=== PATIENT | female | born 1955 | race Caucasian/White ===

== ENCOUNTER 2021-11-13 11:54 | Outpatient (REF) | payer OTHER, SELFPAY ==
[2021-11-13 13:36] LABS: Alanine Aminotransferase 10 U/L (0-31); Albumin Level 3.7 g/dL (3.5-5.0); Alkaline Phosphatase 75 U/L (39-117); Anion Gap 12 (12-20); Aspartate Amino Transferase 11 U/L (5-31); Bilirubin Total 0.7 mg/dL (0.0-1.0); Blood Urea Nitrogen 10 mg/dL (9-16); Calcium 9.6 mg/dL (8.4-10.2); Carbon Dioxide 32 mmol/L (22-29); Chloride 100 mmol/L (96-108); Cholesterol 195 mg/dL; Estimated Glomerular Filt Rate 52; Glucose Fasting 128 mg/dL (60-99); HDL Cholesterol 51 mg/dL; LDL Cholesterol Calculated 130 mg/dl; Potassium 4.7 mmol/L (3.3-5.1); Sodium 139 mmol/L (135-145); Total Protein 6.4 g/dL (6.5-8.0); Triglycerides 71 mg/dL
[2021-11-13 13:53] LABS: TSH reflex Free T4 2.54 uIU/mL (0.32-4.0)
== END 2021-11-13 11:55 | disposition home or self-care (01) ==
LOC: HO.WFDLDS 11:54
PROVIDERS: Visit Provider Hospitalist
DX: Z00.00 Encounter for general adult medical examination without abnormal findings (principal)
CPT/HCPCS: 36415; 80053; 80061; 84443

== ENCOUNTER 2022-03-23 08:50 | Outpatient (REF) | payer OTHER, SELFPAY ==
--- NOTE | ~2022-03-23 | MM_ITS ---
EXAMINATION: MM SCREENING DIGITAL BREAST TOMOSYNTHESIS, BILATERAL CLINICAL INFORMATION: Screening. Asymptomatic. The lifetime risk of breast cancer based on the Tyrer-Cuzick Model is 14%. COMPARISON: Outside mammography: 01/31/2021, 01/10/2020, 01/05/2019 ([facility]) TECHNIQUE: Digital breast tomosynthesis is performed in both the craniocaudal and mediolateral oblique views along with computer-aided detection (CAD). Synthesized 2D images are generated from the tomosynthesis. Additional right MLO view is provided. FINDINGS: There are scattered areas of fibroglandular density (ACR BI-RADS breast composition Category b). Breast tissue composition borders on predominantly fatty. Background stromal and fibroglandular densities are stable. There are scattered benign relatively coarse calcifications. There is no developing density or interval mass or architectural abnormality. The axilla are unremarkable. No significant changes. MM/MM tomosynthesis screening BI IMPRESSION: No mammographic evidence of malignancy. ASSESSMENT: BI-RADS 2: Benign RECOMMENDATION: Routine annual mammography screening. This patient's information was entered into a reminder system with a target due date for their next mammogram.
== END 2022-03-23 08:51 | disposition home or self-care (01) ==
LOC: HO.MAMMO 08:50
PROVIDERS: PCP Hospitalist; Visit Provider Hospitalist
DX: Z12.31 Encounter for screening mammogram for malignant neoplasm of breast (principal)
CPT/HCPCS: 77063; 77067

== ENCOUNTER 2022-06-18 09:17 | Outpatient (REF) | payer OTHER, SELFPAY ==
[2022-06-18 11:54] LABS: Blood Urea Nitrogen 13 mg/dL (9-16); Estimated Glomerular Filt Rate 55
== END 2022-06-18 09:18 | disposition home or self-care (01) ==
LOC: HO.WFDLDS 09:17
PROVIDERS: Visit Provider Ophthalmology
DX: C69.51 Malignant neoplasm of right lacrimal gland and duct (principal); C69 Malignant neoplasm of eye and adnexa
CPT/HCPCS: 36415; 82565; 84520

== ENCOUNTER 2024-06-03 08:59 | Inpatient (IN) | payer MEDICARE, SELFPAY ==
[2024-06-03] VITALS (10 sets, daily range): BP systolic 117–148; BP diastolic 49–60; PULSE 70–80; RESP 19–36; TEMP 36.6–36.8; O2SAT 79–96; BMI 43.6
--- NOTE | ~2024-06-03 | CT_ITS ---
EXAMINATION: CT ANGIOGRAM CHEST CLINICAL INFORMATION: Hypoxia COMPARISON: None available. TECHNIQUE: Multiple axial images were obtained through the chest after the administration of 70 mL of Omnipaque 350 intravenous contrast. Extensive vascular post-processing including two-dimensional and three-dimensional reformatted images were created and reviewed on an independent workstation. SmartPrep technique. This CT examination was performed using dose optimization techniques as appropriate, variously including the following: *Automated exposure control *Adjustment of mA and/or kV according to patient size (this includes techniques or standardized protocols for targeted exams where dose is matched to indication/reason for exam; i.e. extremities or head) *Use of iterative reconstruction technique DLP: 564 mGy-cm FINDINGS: Limited by patient's breathing motion artifact. Inadequate SmartPrep technique. No gross intraluminal filling defects within the main pulmonary artery or its main branches. Inadequate evaluation of the small subsegmental pulmonary artery branches. No aneurysm or dissection, thoracic aorta. Mixed plaques throughout the thoracic aorta wall. The left vertebral artery origin is directly from the aortic arch between the left CCA and the left subclavian artery. Multifocal nodular pulmonary groundglass with a bronchovascular bundle pattern. No pleural effusion. No pneumothorax. No pericardial effusion. Calcified plaques in the coronary arteries. Multilevel spondylosis. No acute fracture or gross listhesis. CT/CT angio chest PE protocol IMPRESSION: Limited examination demonstrated no acute pulmonary artery emboli. No dissection, aorta. Concerning multifocal pneumonia versus septic emboli. Malignancy cannot be excluded. Recommend follow-up. Fleischner guidelines were followed. Electronically signed by: Bert Marin MD 06/03/2024 11:51 AM KATIE
--- NOTE | ~2024-06-03 | XR_ITS ---
EXAMINATION: XR CHEST CLINICAL INFORMATION: sob COMPARISON: None available. TECHNIQUE: Frontal view of the chest was obtained. FINDINGS: Multifocal patchy opacities. No pleural effusion. No pneumothorax. Cardiomediastinal silhouette is normal in size. Calcified plaque thoracic aorta. Multilevel thoracic spondylosis. XR/XR chest 1V IMPRESSION: Concerning multifocal pneumonia Electronically signed by: Bert Marin MD 06/03/2024 11:55 AM EST
--- NOTE | 2024-06-03 10:11 | ED_ITS ---
HPI - SOB/Dyspnea General Chief Complaint: Dyspnea Stated Complaint: diff breathing Time Seen by Provider: 06/03/24 10:10 Source: patient Mode of arrival: ambulatory Limitations: no limitations History of Present Illness HPI Narrative: 59 year old female never been to our ER. PMH: of obesity, asthama, Hypothyroidism, ulcerative colitis, depression with 3 weeks of shortness of breath and cough. Found in triage to have oxygen level of 79%. She is not on oxygen at home. MD elicited complaint: shortness of breath and cough Related Data Home Medications ?Medication ?Instructions ?Recorded ?Confirmed budesonide-formoterol HFA 160 1 inh inhalation BID 11/12/21 mcg-4.5 mcg/actuation aerosol inhaler (Symbicort) bupropion HCl 300 mg 24 hr tablet, 300 mg PO QAM 11/12/21 extended release carvedilol 25 mg tablet 25 mg PO BID 11/12/21 levothyroxine 112 mcg capsule 112 mcg PO DAILY 11/12/21 mesalamine 0.375 gram 1.5 g PO DAILY 11/12/21 capsule,extended release 24 hr Previous Rx's ?Medication ?Instructions ?Recorded blood pressure kit-extra large #1 ea 11/12/21 albuterol sulfate 90 mcg/actuation 2 puff inhalation Q4-6H PRN 10/09/22 aerosol inhaler (ProAir HFA) shortness of breath or wheezing #8.5 grams carvedilol 12.5 mg tablet 12.5 mg PO BID #60 tabs 12/01/23 Allergies Allergy/AdvReac Type Severity Reaction Status Date / Time latex Allergy Mild Hives Verified 06/03/24 10:02 Review of Systems 2 Review of Systems: Review of systems: General: Patient denies any fever chills recent illness or falls Musculoskeletal: Denies back pain or body aches or other injuries HEENT: denies headache, runny nose, ear pain Respiratory: shortness of breath, cough Cardiovascular: no chest pain or palpitations : denies dysuria, frequency Abdomen: no nausea vomiting denies abdominal pain Extremities: no swelling, no pain Skin: no diaphoresis Yes all other systems are reviewed and are negative PMFSH Past Medical History Medical History Asthma Hypertension Hypothyroidism Lymphoma Ulcerative colitis Family History Family History Father Esophageal cancer Mother Breast cancer Social History Social History Housing: House Patient Tobacco Use Status: Former Tobacco user Smoked in Last 30 Days: No e-Cigarette/Vaping Use: Never Used Use of substances other than those prescribed or required for medical reasons: No Advance Directives: No Advance Directives Information Provided: Yes Do you have a plan to hurt others: No Plan service: No Current occupational status: disabled Cognitive needs: No Hearing needs: No Physical Exam 2 Vital Signs: Vital Signs: Last Vital Signs Temp 98.1 F 06/03/24 11:33 Pulse 78 06/03/24 11:46 Resp 30 H 06/03/24 11:46 BP 123/59 L 06/03/24 11:33 Pulse Ox 95 06/03/24 11:33 O2 Del Method Nasal Cannula 06/03/24 11:33 O2 Flow Rate 2 06/03/24 11:33 BMI result Body Mass Index 43.6 General: Well-appearing well-nourished in no signs of distress HEENT: Normocephalic atraumatic Neck: No signs of JVD, no masses no tenderness or lymphadenopathy Cardiovascular: Regular rate and rhythm Respiratory: Clear to auscultation bilaterally Abdomen: Soft nontender no masses Extremities: Normal pedal pulses no signs of edema Skin: Dry warm no rashes Back: No tenderness full ROM Course Course Course Narrative: 1042 patient with multifocal pneumonia started on Zosyn vancomycin as well as Solu-Medrol for her breathing. I did explain the diagnosed with the patient was sent for CT as the patient was very hypoxic to rule out any PE Reevaluation(s) Reevaluation #1: Patient again demonstrates multifocal pneumonia I think the patient benefit from admission especially since she is hypoxic requiring oxygen I discussed the case with the hospitalist at this time. Time: 12:26 Medications Administered Generic Name Dose Route Start Last Admin Trade Name Freq PRN Reason Stop Dose Admin Vancomycin HCl 2,000 mg in 500 mls @ 250 mls/hr 06/03/24 11:00 06/03/24 12:29 Vancomycin/Ns IV 06/03/24 12:59 250 mls/hr ONCE ONE Administration Discontinued Medications Generic Name Dose Route Start Last Admin Trade Name Freq PRN Reason Stop Dose Admin Albuterol Sulfate 2.5 mg/ 5 mg 06/03/24 10:18 06/03/24 10:25 Albuterol Sulfate 2.5 mg INHALE 06/03/24 10:19 5 mg ONCE ONE Administration Albuterol Sulfate 2.5 mg/ 0 mg 06/03/24 11:46 06/03/24 11:50 Albuterol/Ipratropium 3 ml INHALE 06/03/24 11:47 7.5 dose ONCE ONE Administration Piperacillin Sod/Tazobactam 100 mls @ 200 mls/hr 06/03/24 10:31 06/03/24 12:29 Sod 4.5 gm/ Sodium Chloride IV 06/03/24 11:00 Infused ONCE ONE Infusion Sodium Chloride 1,000 mls @ 999 mls/hr 06/03/24 11:15 06/03/24 11:26 Ns IV 06/03/24 12:15 999 mls/hr .Q1H1M JORDAN Administration Iohexol 100 ml 06/03/24 11:09 06/03/24 11:09 Iohexol 350 Mg/Ml 100 Ml Infus..Btl IV 06/03/24 11:10 70 ml ONCE ONE Administration Methylprednisolone Sodium Succinate 125 mg 06/03/24 10:31 06/03/24 11:25 Methylprednisolone Sod Succ 125 Mg/2 Ml Vial IVPUSH 06/03/24 10:32 125 mg ONCE ONE Administration Medical Decision Making Medical Decision Making [facility] Narrative: Hypoxic with pneumonia on x-ray that was done immediately upon arrival I will start the patient on antibiotics Solu-Medrol you have some breathing treatments Differential Diagnosis Differential Diagnoses: The differential diagnosis associated with the presentation includes PE since the patient's hypoxic she is not tachycardic has cough appears to be bronchospastic I think she would benefit from breathing treatments concern for pneumonia with hypoxia as well Admission/Observation Consideration of admission/observation: Escalation of care including admission/observation considered Consult Healthcare Provider Management of the patient was discussed with: Hospitalist Patient require admission she is requiring oxygen she is requiring antibiotics for pneumonia case discussed we both agreed the patient will be admitted Lab Data [facility] Lab Attestation statement: I reviewed the patient's lab results. 06/03/24 10:32 06/03/24 10:32 Labs: Lab Results 1206/03/24 06/03/24 Range/Units 10:26 10:32 10:55 WBC 13.4 H (4.8-10.8) X10*3/uL RBC 3.61 L (4.20-5.50) X10*6/uL Hgb 11.7 L (12.0-16.0) g/dl Hct 34.5 L (37.0-47.0) % MCV 95.6 (80.0-98.0) fL MCH 32.4 (27.0-33.0) pg MCHC 33.9 (31.0-35.0) g/dl RDW 13.5 (11.0-16.0) % Plt Count 247 (160-400) X10*3/uL MPV 9.9 (9.4-12.3) fL Immature Gran % (Auto) Cancelled Neut % (Auto) Cancelled Lymph % (Auto) Cancelled [place] % (Auto) Cancelled Eos % (Auto) Cancelled Baso % (Auto) Cancelled Lymph # (Auto) Cancelled [place] # (Auto) Cancelled Eos # (Auto) Cancelled Baso # (Auto) Cancelled Abs Immat Gran (auto) Cancelled Absolute Neuts (auto) Cancelled Absolute Nucleated RBC 0.000 (0.0-0.012) X10*3/uL Nucleated RBC % (auto) 0.0 (0.0-0.2) /100WBC Neutrophils % (Manual) 69 (45-73) % Band Neutrophils % 9 H (3-5) % Lymphocytes % (Manual) 10 L (20-40) % Monocytes % (Manual) 11 (2-11) % Eosinophils % (Manual) 1 (0-4) % Abs Neuts (Manual) 10.5 H (2.0-8.3) X10*3/uL Lymphocytes # (Manual) 1.3 (1.2-4.9) X10*3/uL Monocytes # (Manual) 1.5 H (0.1-1.2) X10*3/uL Eosinophils # (Manual) 0.1 (0.0-0.4) X10*3/uL Platelet Estimate NORMAL (NORMAL) Plt Morphology Comment NORMAL RBC Morphology NORMAL Sodium 136 (135-145) mmol/L Potassium 5.2 H (3.3-5.1) mmol/L Chloride 98 (96-108) mmol/L Carbon Dioxide 29 (22-29) mmol/L Anion Gap 14 (12-20) BUN 11 (9-16) mg/dL Creatinine 0.90 (0.5-1.4) mg/dL Estim Creat Clear Calc 78.7 Estimated GFR > 60 Random Glucose 158 H (60-115) mg/dL Lactic Acid 0.8 (0.5-2.0) mmol/L Calcium 10.0 (8.4-10.2) mg/dL Magnesium 1.9 (1.6-2.6) mg/dL Total Bilirubin 0.6 (0.0-1.0) mg/dL AST 43 H (5-31) U/L ALT 14 (0-31) U/L Alkaline Phosphatase 76 (39-117) U/L Total Protein 6.7 (6.5-8.0) g/dL Albumin 3.8 (3.5-5.0) g/dL Influenza Type A (PCR) NEGATIVE (Negative) Influenza Type B (PCR) NEGATIVE (Negative) RSV RNA Qual (PCR) NEGATIVE (Negative) SARS-CoV-2 RNA (RT-PCR) NEGATIVE (Negative) Independent Interpretation I performed an independent interpretation of an: EKG, Plain X-Ray and CT Scan Radiology Impression Discussion of test interpretation with radiology: I have reviewed the radiologist's reading. Independent Historian Clinical information obtained from an independent historian. History obtained from or confirmed by: Other External Record Review External record reviewed: Inpatient record and Office record Chronic Conditions Patient?s care impacted by: Hypertension She lives alone Social Determinants Patient?s care significantly limited by Social Determinants of Health including: Inadequate housing Core Measures AMI core measures followed: Yes Critical Care Time Critical Care Time Critical Care Time: Yes Total Critical Care Time: 60 Attestation: Patient found to have multifocal pneumonia worked up for PE as well hypoxic on arrival requiring oxygen breathing treatments Solu-Medrol multiple evaluations in early antibiotics for her pneumonia admitted to Medicine discussion with hospitalist Discharge Plan Discharge Clinical Impression: Community acquired pneumonia, Asthma with exacerbation, Hypoxia Patient Disposition: Admitted As Inpatient Prescriptions: No Action albuterol sulfate [ProAir HFA] 90 mcg/actuation HFA aerosol inhaler 2 puff inhalation Q4-6H PRN (Reason: shortness of breath or wheezing) Qty: 8.5 7RF carvedilol 12.5 mg tablet 12.5 mg PO BID Qty: 60 0RF Rx Instructions: 12.5 mg taken with 25 mg tab twice a day for total dose of 37.5 mg budesonide-formoterol [Symbicort] 160-4.5 mcg/actuation HFA aerosol inhaler 1 inh inhalation BID mesalamine 0.375 gram capsule,extended release 24hr 1.5 g PO DAILY bupropion HCl 300 mg tablet extended release 24 hr 300 mg PO QAM carvedilol 25 mg tablet 25 mg PO BID Rx Instructions: must administer with a meal/food levothyroxine 112 mcg capsule 112 mcg PO DAILY (DME) blood pressure kit-extra large Kit See Rx Instructions .Route Qty: 1 0RF Rx Instructions: As directed Print Language: Hebrew
[2024-06-03] MEDS: Albuterol Sulfate 2.5 MG, Albuterol Sulfate (0.083%) 2.5 MG 5 MG INHALE (10:25)
[2024-06-03 10:38] LABS: Hematocrit 34.5 % (37.0-47.0); Hemoglobin 11.7 g/dl (12.0-16.0); Mean Corpuscular HGB Conc 33.9 g/dl (31.0-35.0); Mean Corpuscular Hemoglobin 32.4 pg (27.0-33.0); Mean Corpuscular Volume 95.6 fL (80.0-98.0); Mean Platelet Volume 9.9 fL (9.4-12.3); Platelet Count 247 X10*3/uL (160-400); Red Blood Count 3.61 X10*6/uL (4.20-5.50); Red Cell Distribution Width 13.5 % (11.0-16.0); White Blood Count 13.4 X10*3/uL (4.8-10.8)
[2024-06-03 11:01] LABS: Alanine Aminotransferase 14 U/L (0-31); Albumin Level 3.8 g/dL (3.5-5.0); Alkaline Phosphatase 76 U/L (39-117); Anion Gap 14 (12-20); Aspartate Amino Transferase 43 U/L (5-31); Bilirubin Total 0.6 mg/dL (0.0-1.0); Blood Urea Nitrogen 11 mg/dL (9-16); Carbon Dioxide 29 mmol/L (22-29); Chloride 98 mmol/L (96-108); Creatinine Clr Calc Pharmacy 78.7; Estimated Glomerular Filt Rate > 60; Glucose Random 158 mg/dL (60-115); Magnesium 1.9 mg/dL (1.6-2.6); Potassium 5.2 mmol/L (3.3-5.1); Sodium 136 mmol/L (135-145); Total Protein 6.7 g/dL (6.5-8.0)
[2024-06-03 11:05] LABS: Band Neutrophils Percent 9 % (3-5); Eosinophils Absolute Manual 0.1 X10*3/uL (0.0-0.4); Eosinophils Percent Manual 1 % (0-4); Lymphocytes Absolute Manual 1.3 X10*3/uL (1.2-4.9); Lymphocytes Percent Manual 10 % (20-40); Monocytes Absolute Manual 1.5 X10*3/uL (0.1-1.2); Monocytes Percent Manual 11 % (2-11); Neutrophils Absolute Manual 10.5 X10*3/uL (2.0-8.3); Neutrophils Percent Manual 69 % (45-73); RBC Morphology NORMAL
[2024-06-03 11:06] LABS: Platelet Estimate NORMAL (NORMAL); Platelet Morphology Comment NORMAL
[2024-06-03] MEDS: iohexoL 350 MG/ML 100 ML INFUS..BTL IV (11:09)
[2024-06-03 11:19] LABS: Lactic Acid 0.8 mmol/L (0.5-2.0)
[2024-06-03 11:24] LABS: Influenza A PCR NEGATIVE (Negative); Influenza B PCR NEGATIVE (Negative); Resp Syncy Virus RNA Qual PCR NEGATIVE (Negative); SARS COV2 PCR INHOUSE NEGATIVE (Negative)
[2024-06-03] MEDS: Piperacillin Sodium/Tazobactam 4.5 GM in 0.9 % Sodium Chloride 100 ML IV ×2 (11:25→20:30)
[2024-06-03] MEDS: methylPREDNISolone Sod Succ 125 MG/2 ML VIAL IVPUSH (11:25)
[2024-06-03] MEDS: 0.9 % Sodium Chloride 1,000 ML 999 ML IV (11:26)
[2024-06-03] MEDS: Albuterol Sulfate 2.5 MG, Albuterol/Iprat 2.5/0.5MG 3 ML 3 ML INHALE (11:50)
[2024-06-03] MEDS: vancomycin/NS 2,000 MG/500 ML PLAST..BAG 250 MG IV (12:29)
--- NOTE | 2024-06-03 13:05 | MHC.EDTECH ---
patient had to use the bathroom due to her breathing I brought a camode at bedside . she is a stand by assit to the camode
--- NOTE | 2024-06-03 13:33 | PM.IMHP ---
History of Present Illness Date of Service: 06/03/24 Attending physician on admission: Debi White Chief Complaint: SOB, cough Pt is a 69-year-old female with a PMH significant for moderate persistent asthma, HTN, ulcerative colitis, non-Hodgkin's lymphoma s/p radiation in 2017 currently in remission, hypothyroidism, PTSD, and anxiety who presents to the ED with?SOB, TAVAREZ, fatigue/weakness, and productive cough x5 days. Patient reports symptoms began last Friday with a sore throat. On Friday developed an initially productive cough and symptoms worsened over the next few days. The patient has been experiencing SOB and difficulty breathing both at rest and with exertion. Symptoms have not been alleviated by home inhalers. Patient is not on home O2. Denies fever, chills. No chest pain/pressure, palpitations. Denies nausea, vomiting, diarrhea, abdominal pain. Patient reports quitting smoking over 30 years ago. Denies alcohol or recreational substance use. In the ED pt was tachypneic as high as 30 and hypoxic as low as 79% on RA. Labs were significant for leukocytosis 13.4 with bandemia 9%, potassium 5.2, and AST 43. Renal function baseline. Lactic acid WNL at 0.8. Tested negative for flu, COVID, RSV. CXR showed concern for multifocal pneumonia. CTA of chest limited by patient's breathing motion artifact, though demonstrated no acute pulmonary artery emboli. Was concerning for multifocal pneumonia versus septic emboli, though malignancy can not be excluded. Pt was treated with IVF, DuoNebs, Solu-Medrol, Zosyn, and vancomycin. Pt will be admitted to the hospital for treatment and further evaluation of acute hypoxic respiratory failure in the setting of multifocal pneumonia with sepsis. Review of Systems Review of Systems: Negative except for that which is stated in the [facility] Medical History Ulcerative colitis Hypertension Lymphoma Asthma Hypothyroidism Family History Father Esophageal cancer Mother Breast cancer Social History Housing: House Patient Tobacco Use Status: Former Tobacco user Smoked in Last 30 Days: No e-Cigarette/Vaping Use: Never Used Use of substances other than those prescribed or required for medical reasons: No Advance Directives: No Advance Directives Information Provided: Yes Do you have a plan to hurt others: No Plan service: No Current occupational status: disabled Cognitive needs: No Hearing needs: No Meds Allergies Allergy/AdvReac Type Severity Reaction Status Date / Time latex Allergy Mild Hives Verified 06/03/24 10:02 Home Medications ?Medication ?Instructions ?Recorded ?Confirmed ?Last Taken ?Type bupropion HCl 300 mg 24 hr tablet, 300 mg PO DAILY 11/12/21 06/03/24 06/03/24 History extended release carvedilol 25 mg tablet 25 mg PO BID 11/12/21 06/03/24 06/03/24 History levothyroxine 112 mcg capsule 112 mcg PO DAILY@0600 11/12/21 06/03/24 06/03/24 History albuterol sulfate 2.5 mg/3 mL 2.5 mg inhalation Q4-6H PRN 06/03/24 06/03/24 Unknown History (0.083 %) solution for nebulization Shortness Of Breath Or Wheezing albuterol sulfate 90 mcg/actuation 2 puff inhalation Q4-6H PRN 06/03/24 06/03/24 06/03/24 History aerosol inhaler wheezing allopurinol 300 mg tablet 300 mg PO DAILY 06/03/24 06/03/24 06/03/24 History budesonide-formoterol HFA 80 2 puff inhalation BID 06/03/24 06/03/24 06/03/24 History mcg-4.5 mcg/actuation aerosol inhaler (Symbicort) cholecalciferol (vitamin D3) 25 25 mcg PO DAILY 06/03/24 06/03/24 06/03/24 History mcg (1,000 unit) tablet (Vitamin D3) Physical Exam Vital Signs and Narrative: Vital Signs: Last Vital Signs Temp 98.1 F 06/03/24 11:33 Pulse 78 06/03/24 11:46 Resp 30 H 06/03/24 11:46 BP 123/59 L 06/03/24 11:33 Pulse Ox 95 06/03/24 11:33 O2 Del Method Nasal Cannula 06/03/24 11:33 O2 Flow Rate 2 06/03/24 11:33 BMI result Body Mass Index 43.6 Constitutional: Alert, in no acute distress. Mental Status: Oriented to person, place and time. Eyes: Pupils are equal, round, and reactive to light. Ear, Nose, and Throat: Oropharynx clear, mucous membranes moist. Ears and nose without deformities. Trachea midline. Respiratory: Diffuse expiratory wheezing bilaterally. Pt continually coughing during interview and exam. Cardiovascular: S1, S2 regular. No murmurs, rubs, or gallops. Gastrointestinal: Abdomen soft, non-tender, non-distended. Normal bowel sounds. Neurologic: Cranial nerves II-XII are grossly intact bilaterally. No focal neurological deficits. Moves all extremities spontaneously. Skin: Warm, dry. Extremities: No edema. Psychiatric: Normal mood and affect. Results Labs 06/03/24 10:32 06/03/24 10:32 Labs: Laboratory Results - last 24 hr 06/03/24 06/03/24 06/03/24 10:26 10:32 10:55 MCV 95.6 MCH 32.4 MCHC 33.9 RDW 13.5 Plt Count 247 MPV 9.9 Immature Gran % (Auto) Cancelled Neut % (Auto) Cancelled Lymph % (Auto) Cancelled [place] % (Auto) Cancelled Eos % (Auto) Cancelled Baso % (Auto) Cancelled Lymph # (Auto) Cancelled [place] # (Auto) Cancelled Eos # (Auto) Cancelled Baso # (Auto) Cancelled Abs Immat Gran (auto) Cancelled Absolute Neuts (auto) Cancelled Absolute Nucleated RBC 0.000 Nucleated RBC % (auto) 0.0 Neutrophils % (Manual) 69 Band Neutrophils % 9 H Lymphocytes % (Manual) 10 L Monocytes % (Manual) 11 Eosinophils % (Manual) 1 Abs Neuts (Manual) 10.5 H Lymphocytes # (Manual) 1.3 Monocytes # (Manual) 1.5 H Eosinophils # (Manual) 0.1 Platelet Estimate NORMAL Plt Morphology Comment NORMAL RBC Morphology NORMAL Anion Gap 14 Estim Creat Clear Calc 78.7 Estimated GFR > 60 Random Glucose 158 H Lactic Acid 0.8 Calcium 10.0 Magnesium 1.9 Total Bilirubin 0.6 AST 43 H ALT 14 Alkaline Phosphatase 76 Total Protein 6.7 Albumin 3.8 Influenza Type A (PCR) NEGATIVE Influenza Type B (PCR) NEGATIVE RSV RNA Qual (PCR) NEGATIVE SARS-CoV-2 RNA (RT-PCR) NEGATIVE Assessment and Plan (1) Hypoxia: Status: Acute (2) Multifocal pneumonia: Status: Acute Plan Pt is a 69-year-old female with a PMH significant for moderate persistent asthma, HTN, ulcerative colitis, non-Hodgkin's lymphoma s/p radiation in 2017 currently in remission, hypothyroidism, PTSD, and anxiety who presents to the ED with?SOB, TAVAREZ, fatigue/weakness, and productive cough x5 days. Pt will be admitted to the hospital for treatment and further evaluation of acute hypoxic respiratory failure in the setting of multifocal pneumonia with sepsis. Acute hypoxic respiratory failure in the setting of multifocal pneumonia with sepsis Patient with SOB, TAVAREZ, fatigue, and cough x5 days; history of moderate persistent asthma Satting at 79% on RA, CTA concerning for multifocal pneumonia vs septic emboli, diffuse wheezing upon auscultation Meets sepsis criteria with leukocytosis and tachypnea; lactic acid WNL Patient given IVF and started on broad-spectrum antibiotics in the ED Will treat with vancomycin and Zosyn, started 06/03/2024 DuoNebs, prednisone 40 mg p.o. x3 days, guaifenesin Titrate supplemental O2>92, wean as tolerated Monitor respiratory status HTN Continue carvedilol Hypothyroidism Continue levothyroxine Ulcerative colitis Not on home medications Denies recent acute flare Hx of non-Hodgkin's lymphoma S/P radiation in 2017 Currently in remission DNR/DNI, verified with pt Attending:?Dr. White DVT Prophylaxis: Lovenox Pt will require a hospitalization of at least two nights for treatment of?acute hypoxic respiratory failure in the setting of multifocal pneumonia with sepsis requiring IV antibiotics, supplemental oxygen, breathing treatments, and close monitoring of respiratory status. Quality Stroke Does the patient have a stroke diagnosis?: No VTE Prior VTE?: No VTE Risk Level:: Medical - moderate - high VTE Device Contraindication: Treatment Not Indicated VTE Drug Contraindication: N/A - Med Ordered
--- NOTE | 2024-06-03 13:40 | PHA.MEDREC ---
Addendum entered by Jose Rogers RPh 06/03/24 13:45: reviewed by [facility] Original Note: Pharmacy Consult ? Medication Reconciliation Pharmacy has completed the medication reconciliation. Spoke to patient to confirm med list. patient had a list of medications with her. Patient states she no longer takes mesalamine [place] 0.375 mg, Carvedilol 12.5 mg.
--- NOTE | 2024-06-03 15:09 | PHA.PROG ---
Admission Date/Time: June 03, 2024 14:35 Indication: Respiratory Weight in k.5 kg Adjusted body weight in Kg: [place] body weight in Kg: Obesity Dosing Indication % IBW: BMI 43.6 Serum Creatinine - Last 168 Hours 06/03/24 10:32 Creatinine 0.90 Estimated CrCl and GFR - Last 168 Hours 06/03/24 10:32 Estim Creat Clear Calc 78.7 Estimated GFR > 60 Vancomycin Loading Dose: 2000mg X1 Current Vancomycin Dosing Regimen: 750 mg Q12H Vancomycin Monitoring using AUC goal of 400 - 600 range with trough as surrogate marker: 488 Date and Time for next Vancomycin Level to be drawn: 06/04 @1100 Pharmacist Comments on Vancomycin Plan: Starting with 750mg Q12H to aim for higher trough (15.8) , as patient's renal function is stable and patient is obese with a BMI of 43.6. Checking trough tomorrow to see how patient clears and to gauge how to adjust per patient renal function. Vancomycin dosing will take advantage of [facility] as a clinical decision support tool that uses Bayesian modeling to calculate individual patient's pharmacokinetic parameters and forecast the patient's drug concentration time course with the target goal AUC 24 range of 400 - 600 mg/L/hr.
[2024-06-03] MEDS: Albuterol/Iprat 2.5/0.5MG 3 ML AMPUL.NEB INHALE ×2 (15:35→18:43)
[2024-06-03] MEDS: Enoxaparin Sodium 40 MG/0.4 ML SYRINGE SUBCUT (16:03)
[2024-06-03] MEDS: 0.9 % Sodium Chloride Flush 3 ML SYRINGE IVFLUSH (16:04)
[2024-06-03] MEDS: carvediloL 25 MG TABLET PO (20:32)
[2024-06-03] MEDS: guaiFEN/Codeine SF 200/20/10ML 10 ML LIQUID PO (20:40)
[2024-06-04] VITALS (12 sets, daily range): BP systolic 105–149; BP diastolic 53–89; PULSE 55–81; RESP 12–20; TEMP 36.5–36.8; O2SAT 94–100
[2024-06-04] MEDS: Piperacillin Sodium/Tazobactam 4.5 GM in 0.9 % Sodium Chloride 100 ML IV ×5 (01:10→23:33)
[2024-06-04] MEDS: 0.9 % Sodium Chloride Flush 3 ML SYRINGE IVFLUSH ×4 (01:11→20:03)
[2024-06-04] MEDS: vancomycin HCL 750 MG in 0.9 % Sodium Chloride 250 ML 265 MG IV (01:20)
[2024-06-04 05:19] LABS: Hematocrit 34.2 % (37.0-47.0); Hemoglobin 11.2 g/dl (12.0-16.0); Mean Corpuscular HGB Conc 32.7 g/dl (31.0-35.0); Mean Corpuscular Volume 97.7 fL (80.0-98.0); Mean Platelet Volume 10.7 fL (9.4-12.3); Platelet Count 234 X10*3/uL (160-400); Red Cell Distribution Width 13.6 % (11.0-16.0); White Blood Count 14.2 X10*3/uL (4.8-10.8)
[2024-06-04 05:40] LABS: Anion Gap 16 (12-20); Blood Urea Nitrogen 16 mg/dL (9-16); Calcium 9.6 mg/dL (8.4-10.2); Carbon Dioxide 23 mmol/L (22-29); Chloride 103 mmol/L (96-108); Creatinine Clr Calc Pharmacy 68.1; Estimated Glomerular Filt Rate 53; Glucose Random 158 mg/dL (60-115); Potassium 4.5 mmol/L (3.3-5.1); Sodium 137 mmol/L (135-145)
[2024-06-04] MEDS: Levothyroxine Sodium 112 MCG TABLET PO (06:20)
[2024-06-04] MEDS: Albuterol/Iprat 2.5/0.5MG 3 ML AMPUL.NEB INHALE ×4 (07:28→19:41)
--- NOTE | 2024-06-04 08:14 | MHC.EDTECH ---
Patient ate 100% of breakfast. Patient states she is comfortable at this time. Call portillo placed within reach.
--- NOTE | 2024-06-04 10:03 | MHC.CM.PN ---
Met with patient in regards to discharge planning. Patient lives alone, ambulates with a cane and had no services prior to coming to the hospital. PCP verified. Copy of HCP requested from [facility]. No services anticipated to be needed because patient is not homebound. IMM explained and signed. Patient's brother will transport patient home when medically stable. Continue to monitor for d/c needs.
[2024-06-04] MEDS: allopurinoL 300 MG TABLET PO (10:43)
[2024-06-04] MEDS: carvediloL 25 MG TABLET PO ×2 (10:43→20:02)
[2024-06-04] MEDS: predniSONE 20 MG TABLET 40 MG PO (10:43)
[2024-06-04] MEDS: Loratadine 10 MG TABLET PO (10:44)
[2024-06-04] MEDS: Cholecalciferol (Vitamin D3) 25 MCG TABLET PO (10:44)
[2024-06-04] MEDS: buPROPion HCl XL 300 MG TAB.ER.24H PO (11:15)
[2024-06-04 11:46] LABS: Vancomycin Random 16.5 mcg/mL (15-20)
--- NOTE | 2024-06-04 12:39 | HO.PM.IMPN ---
Subjective Subjective Date of Service: 06/04/24 Interval History: multifocal pneumonia Review of Systems sob ,cough no fever Physical Exam Vital Signs: Vital Signs: Last Vital Signs Temp 97.7 F 06/04/24 11:10 Pulse 65 06/04/24 11:39 Resp 19 06/04/24 11:39 BP 146/65 H 06/04/24 11:10 Pulse Ox 95 06/04/24 11:10 O2 Del Method Room Air 06/04/24 11:10 O2 Flow Rate 2 06/04/24 06:46 BMI result Body Mass Index 43.6 Appearance: Alert.? Oriented X3. cvs: rrr, [id number] . res: air entry diminshed, has few exp wheezing abd: no rebound or guarding ,nt, bs present. ext pulses present , no cyanosis . neuro: axo3 , nonfocal. Objective Data Active Medications Acetaminophen (Acetaminophen 325 Mg Tablet) 650 mg PO Q6H PRN PRN Reason: Pain, Mild (Pain Scale 1-3), fever or headache Albuterol/Ipratropium (Albuterol/Iprat 2.5/0.5mg 3 Ml Ampul.Neb) 3 ml INHALE RQ4H WHILE AWAKE [facility] Last Admin: 06/04/24 11:39 Dose: 3 ml Documented By: EDI Albuterol/Ipratropium (Albuterol/Iprat 2.5/0.5mg 3 Ml Ampul.Neb) 3 ml INHALE RQ4H WHILE AWAKE PRN PRN Reason: Shortness of Breath/Wheezing Allopurinol (Allopurinol 300 Mg Tablet) 300 mg PO DAILY [facility] Last Admin: 06/04/24 10:43 Dose: 300 mg Documented By: LOS Benzocaine (Throat Lozenge, Medicated Lozenge) 1 lozenge MUCOUS MEM Q2H PRN PRN Reason: Sore Throat Bupropion HCl (Bupropion Hcl Xl 300 Mg Tab.Er.24h) 300 mg PO DAILY [facility] Last Admin: 06/04/24 11:15 Dose: 300 mg Documented By: MONICA Calcium Carbonate (Calcium Carbonate 750 Mg Tab.Chew) 750 mg PO Q4H PRN PRN Reason: Heartburn Carvedilol (Carvedilol 25 Mg Tablet) 25 mg PO BID [facility]; Protocol Last Admin: 06/04/24 10:43 Dose: 25 mg Documented By: LOS Enoxaparin Sodium (Enoxaparin Sodium 40 Mg/0.4 Ml Syringe) 40 mg SUBCUT Q24H [facility] Last Admin: 06/03/24 16:03 Dose: 40 mg Documented By: ALLEY Guaifenesin/Codeine Phosphate (Guaifen/Codeine Sf 200/20/10ml 10 Ml Liquid) 10 ml PO Q4H PRN PRN Reason: Cough Last Admin: 06/03/24 20:40 Dose: 10 ml Documented By: CORBY Piperacillin Sod/Tazobactam (Sod 4.5 gm/ Sodium Chloride) 100 mls @ 200 mls/hr IV Q6H [facility] Last Infusion: 06/04/24 12:25 Dose: Infused Documented By: MONICA Vancomycin HCl 1,500 mg/ (Sodium Chloride) 500 mls @ 333.333 mls/hr IV Q24H [facility] Levothyroxine Sodium (Levothyroxine Sodium 112 Mcg Tablet) 112 mcg PO DAILY@0600 [facility] Last Admin: 06/04/24 06:20 Dose: 112 mcg Documented By: CORBY Loratadine (Loratadine 10 Mg Tablet) 10 mg PO DAILY [facility] Last Admin: 06/04/24 10:44 Dose: 10 mg Documented By: LOS Magnesium Hydroxide (Milk Of Magnesia 30 Ml Oral.Susp) 30 ml PO DAILY PRN PRN Reason: Constipation Melatonin (Melatonin 3 Mg Tablet) 6 mg PO BEDTIME PRN PRN Reason: Insomnia Ondansetron HCl (Ondansetron Hcl 4 Mg/2 Ml Vial) 4 mg IVPUSH Q8H PRN PRN Reason: Nausea and Vomiting Pharmacy Consult (Consult Rx Vancomycin Dosing) 1 each MISCELLANE DAILY PRN PRN Reason: Consult order Prednisone (Prednisone 20 Mg Tablet) 40 mg PO DAILY [facility] Stop: 06/07/24 08:59 Last Admin: 06/04/24 10:43 Dose: 40 mg Documented By: LOS Sodium Chloride (0.9 % Sodium Chloride Flush 3 Ml Syringe) 3 ml IVFLUSH QSHIFT [facility] Last Admin: 06/04/24 10:45 Dose: 3 ml Documented By: LOS Vitamin D (Cholecalciferol (Vitamin D3) 25 Mcg Tablet) 25 mcg PO DAILY [facility] Last Admin: 06/04/24 10:44 Dose: 25 mcg Documented By: LOS Labs 06/04/24 05:00 06/04/24 05:00 Labs: Laboratory Results - last 24 hr 06/04/24 06/04/24 05:00 11:24 MCV 97.7 MCH 32.0 MCHC 32.7 RDW 13.6 Plt Count 234 MPV 10.7 Absolute Nucleated RBC 0.000 Nucleated RBC % (auto) 0.0 Anion Gap 16 Estim Creat Clear Calc 68.1 Estimated GFR 53 Random Glucose 158 H Calcium 9.6 Random Vancomycin 16.5 Assessment and Plan (1) Multifocal pneumonia: Status: Acute (2) Hypoxia: Status: Acute Assessment and Plan: 69-year-old female with a PMH significant for moderate persistent asthma, HTN, ulcerative colitis, non-Hodgkin's lymphoma s/p radiation in 2016 currently in remission, hypothyroidism, PTSD, and anxiety who presents to the ED with?SOB, TAVAREZ, fatigue/weakness, and productive cough x5 days. Pt will be admitted to the hospital for treatment and further evaluation of acute hypoxic respiratory failure in the setting of multifocal pneumonia with sepsis. Acute hypoxic respiratory failure in the setting of multifocal pneumonia with sepsis has SOB, TAVAREZ, fatigue, and cough x5 days CTA concerning for multifocal pneumonia vs septic emboli, diffuse wheezing upon auscultation has leukocytosis and tachypnea resolved,lactic acid-normal. Plan:continue nebs,steriods ,vancomycin and Zosyn, started 06/03/2024 Titrate supplemental O2>92, wean as tolerated. Monitor respiratory status HTN:Continue carvedilol. Hypothyroidism:Continue levothyroxine. Ulcerative colitis:Not on home medications Denies recent acute flare Hx of non-Hodgkin's lymphoma S/P radiation in 2017 Currently in remission DNR/DNI. DVT Prophylaxis: Lovenox ongoing need for hospitalization for treatment of?acute hypoxic respiratory failure in the setting of multifocal pneumonia with sepsis requiring IV antibiotics, supplemental oxygen, breathing treatments, and close monitoring of respiratory status. Quality Stroke Does the patient have a stroke diagnosis?: No VTE Prior VTE?: No VTE Risk Level:: Medical - moderate - high VTE Device Contraindication: Treatment Not Indicated VTE Drug Contraindication: N/A - Med Ordered
[2024-06-04] MEDS: vancomycin HCL 1,500 MG in 0.9 % Sodium Chloride 500 ML 333.33 MG IV (13:18)
[2024-06-04] MEDS: Enoxaparin Sodium 40 MG/0.4 ML SYRINGE SUBCUT (16:06)
[2024-06-04] MEDS: guaiFENesin DM 600/30 1 TAB TAB.ER.12H 2 TAB PO (20:42)
--- NOTE | 2024-06-04 22:32 | P.CNID_ITS ---
History of Present Illness Data of Consult Service Date: 06/04/24 Requesting physician: Debi White Primary Care Provider: Catarina Khan MD HPI Reason for consult: shortness of breath She had shortenss of breath for a [place]. She had hypoxia. Review of Systems 2 Review of Systems: Yes all other systems are reviewed and are negative [facility] Past Medical History Medical History Ulcerative colitis Hypertension Lymphoma Asthma Hypothyroidism Family History Family History Father Esophageal cancer Mother Breast cancer Social History Social History Household Members: None Housing: House Do you presently have visiting nurse or other home services: No Patient Tobacco Use Status: Former Tobacco user e-Cigarette/Vaping Use: Never Used service: No Current occupational status: disabled Cognitive needs: No Hearing needs: No Meds Allergies Allergy/AdvReac Type Severity Reaction Status Date / Time latex Allergy Mild Hives Verified 06/03/24 10:02 Active Medications: Current Medications Acetaminophen (Acetaminophen 325 Mg Tablet) 650 mg PO Q6H PRN PRN Reason: Pain, Mild (Pain Scale 1-3), fever or headache Albuterol/Ipratropium (Albuterol/Iprat 2.5/0.5mg 3 Ml Ampul.Neb) 3 ml INHALE RQ4H WHILE AWAKE [facility] Last Admin: 06/04/24 19:41 Dose: 3 ml Albuterol/Ipratropium (Albuterol/Iprat 2.5/0.5mg 3 Ml Ampul.Neb) 3 ml INHALE RQ4H WHILE AWAKE PRN PRN Reason: Shortness of Breath/Wheezing Allopurinol (Allopurinol 300 Mg Tablet) 300 mg PO DAILY [facility] Last Admin: 06/04/24 10:43 Dose: 300 mg Benzocaine (Throat Lozenge, Medicated Lozenge) 1 lozenge MUCOUS MEM Q2H PRN PRN Reason: Sore Throat Bupropion HCl (Bupropion Hcl Xl 300 Mg Tab.Er.24h) 300 mg PO DAILY [facility] Last Admin: 06/04/24 11:15 Dose: 300 mg Calcium Carbonate (Calcium Carbonate 750 Mg Tab.Chew) 750 mg PO Q4H PRN PRN Reason: Heartburn Carvedilol (Carvedilol 25 Mg Tablet) 25 mg PO BID [facility]; Protocol Last Admin: 06/04/24 20:02 Dose: 25 mg Enoxaparin Sodium (Enoxaparin Sodium 40 Mg/0.4 Ml Syringe) 40 mg SUBCUT Q24H [facility] Last Admin: 06/04/24 16:06 Dose: 40 mg Guaifenesin/Dextromethorphan (Guaifenesin Dm 600/30 1 Tab Tab.Er.12h) 2 tab PO BID PRN PRN Reason: Cough Last Admin: 06/04/24 20:42 Dose: 2 tab Piperacillin Sod/Tazobactam (Sod 4.5 gm/ Sodium Chloride) 100 mls @ 200 mls/hr IV Q6H [facility] Last Infusion: 06/04/24 18:40 Dose: Infused Vancomycin HCl 1,500 mg/ (Sodium Chloride) 500 mls @ 333.333 mls/hr IV Q24H [facility] Last Infusion: 06/04/24 14:49 Dose: Infused Levothyroxine Sodium (Levothyroxine Sodium 112 Mcg Tablet) 112 mcg PO DAILY@0600 [facility] Last Admin: 06/04/24 06:20 Dose: 112 mcg Loratadine (Loratadine 10 Mg Tablet) 10 mg PO DAILY [facility] Last Admin: 06/04/24 10:44 Dose: 10 mg Magnesium Hydroxide (Milk Of Magnesia 30 Ml Oral.Susp) 30 ml PO DAILY PRN PRN Reason: Constipation Melatonin (Melatonin 3 Mg Tablet) 6 mg PO BEDTIME PRN PRN Reason: Insomnia Ondansetron HCl (Ondansetron Hcl 4 Mg/2 Ml Vial) 4 mg IVPUSH Q8H PRN PRN Reason: Nausea and Vomiting Pharmacy Consult (Consult Rx Vancomycin Dosing) 1 each MISCELLANE DAILY PRN PRN Reason: Consult order Prednisone (Prednisone 20 Mg Tablet) 40 mg PO DAILY [facility] Stop: 06/07/24 08:59 Last Admin: 06/04/24 10:43 Dose: 40 mg Sodium Chloride (0.9 % Sodium Chloride Flush 3 Ml Syringe) 3 ml IVFLUSH QSHIFT [facility] Last Admin: 06/04/24 20:03 Dose: 3 ml Vitamin D (Cholecalciferol (Vitamin D3) 25 Mcg Tablet) 25 mcg PO DAILY [facility] Last Admin: 06/04/24 10:44 Dose: 25 mcg Home Medications ?Medication ?Instructions ?Recorded ?Confirmed ?Last Taken ?Type bupropion HCl 300 mg 24 hr tablet, 300 mg PO DAILY 11/12/21 06/03/24 06/03/24 History extended release carvedilol 25 mg tablet 25 mg PO BID 11/12/21 06/03/24 06/03/24 History levothyroxine 112 mcg capsule 112 mcg PO DAILY@0600 11/12/21 06/03/24 06/03/24 History albuterol sulfate 2.5 mg/3 mL 2.5 mg inhalation Q4-6H PRN 06/03/24 06/03/24 Unknown History (0.083 %) solution for nebulization Shortness Of Breath Or Wheezing albuterol sulfate 90 mcg/actuation 2 puff inhalation Q4-6H PRN 06/03/24 06/03/24 06/03/24 History aerosol inhaler wheezing allopurinol 300 mg tablet 300 mg PO DAILY 06/03/24 06/03/24 06/03/24 History budesonide-formoterol HFA 80 2 puff inhalation BID 06/03/24 06/03/24 06/03/24 History mcg-4.5 mcg/actuation aerosol inhaler (Symbicort) cholecalciferol (vitamin D3) 25 25 mcg PO DAILY 06/03/24 06/03/24 06/03/24 History mcg (1,000 unit) tablet (Vitamin D3) Physical Exam 2 Vital Signs: Vital Signs: Last Vital Signs Temp 97.7 F 06/04/24 19:10 Pulse 79 06/04/24 20:02 Resp 14 06/04/24 19:43 BP 134/89 06/04/24 20:02 Pulse Ox 98 06/04/24 19:10 O2 Del Method Room Air 06/04/24 19:10 O2 Flow Rate 2 06/04/24 06:46 BMI result Body Mass Index 43.6 Const: General: cooperative HEENT: Head: Yes normal to inspection Face and sinus: Yes normal facial exam Mouth: Normal oral and palatal mucosa present Teeth and gingiva: d entition normal Eyes: General: appearance normal, both eyes and all related structures P upils: Equal, round and reactive pupils present Resp: Effort & Inspection: normal respiratory effort Cardio: Rate: regular rate Rhythm: regular rhythm GI: Palpation (GI): Soft to palpation and nontender : General: Yes no CVA tenderness Back/Spine/Pelvis: Back: no CVA tenderness Skin: General skin exam: no rashes or lesions noted Neuro: General: moves all extremities Cranial nerves: Yes Equal, round and reactive pupils present Extrem: General: Yes normal to inspection Psych: Appearance: grossly normal Results Labs 06/04/24 05:00 06/04/24 05:00 Labs: Short CBC 06/04/24 Range/Units 05:00 WBC 14.2 H (4.8-10.8) X10*3/uL Hgb 11.2 L (12.0-16.0) g/dl Hct 34.2 L (37.0-47.0) % Plt Count 234 (160-400) X10*3/uL BMP 06/04/24 05:00 Sodium 137 Potassium 4.5 Chloride 103 Carbon Dioxide 23 BUN 16 Creatinine 1.04 Calcium 9.6 Microbiology Microbiology Results: Microbiology 06/03/24 10:55 Blood - Venous Blood Culture - Preliminary No growth after 24 hours. 06/03/24 10:48 Blood - Venous Blood Culture - Preliminary No growth after 24 hours. Assessment and Plan (1) Multifocal pneumonia: Status: Acute (2) Hypoxia: Status: Acute Plan possible atypical probable strep or staph Check nares MRSA. Check RVP if not done. Change to Doxycycline on discharage for 10 d probably.
[2024-06-05] VITALS (8 sets, daily range): BP systolic 143–155; BP diastolic 63–70; PULSE 60–75; RESP 16–18; TEMP 36.1–37; O2SAT 93–96
--- NOTE | 2024-06-05 03:46 | PC.NURSE ---
Pt seen at start of the shift alert and oriented, noted withb frequnet and persistent coughing, pt was offered Robitussin with Codeine liq po , pt refused and saifd she prefer tablet form. Dr. Antunez was made aware, Mucinex tab ordered and given, with good effect.
[2024-06-05] MEDS: Levothyroxine Sodium 112 MCG TABLET PO (05:31)
[2024-06-05] MEDS: Piperacillin Sodium/Tazobactam 4.5 GM in 0.9 % Sodium Chloride 100 ML IV ×3 (05:31→17:14)
[2024-06-05 07:18] LABS: Creatinine Clr Calc Pharmacy 63.2; Estimated Glomerular Filt Rate 48
[2024-06-05] MEDS: Albuterol/Iprat 2.5/0.5MG 3 ML AMPUL.NEB INHALE ×4 (07:40→21:09)
[2024-06-05] MEDS: 0.9 % Sodium Chloride Flush 3 ML SYRINGE IVFLUSH ×2 (08:00→14:46)
[2024-06-05] MEDS: predniSONE 20 MG TABLET 40 MG PO (08:00)
[2024-06-05] MEDS: allopurinoL 300 MG TABLET PO (08:00)
[2024-06-05] MEDS: Cholecalciferol (Vitamin D3) 25 MCG TABLET PO (08:00)
[2024-06-05] MEDS: carvediloL 25 MG TABLET PO ×2 (08:00→20:08)
[2024-06-05] MEDS: Loratadine 10 MG TABLET PO (08:00)
[2024-06-05] MEDS: buPROPion HCl XL 300 MG TAB.ER.24H PO (08:00)
[2024-06-05] MEDS: guaiFENesin DM 600/30 1 TAB TAB.ER.12H 2 TAB PO ×2 (12:12→17:13)
[2024-06-05] MEDS: vancomycin HCL 1,500 MG in 0.9 % Sodium Chloride 500 ML 333.33 MG IV (12:55)
--- NOTE | 2024-06-05 13:13 | HO.PM.IMPN ---
Subjective Subjective Date of Service: 06/05/24 Interval History: multifocal pneumonia Review of Systems feels weak and sob seems similar has cough Physical Exam Vital Signs: Vital Signs: Last Vital Signs Temp 97.7 F 06/05/24 08:00 Pulse 75 06/05/24 11:18 Resp 16 06/05/24 11:18 BP 155/70 H 06/05/24 08:00 Pulse Ox 96 06/05/24 08:00 O2 Del Method Room Air 06/05/24 08:00 O2 Flow Rate 2 06/04/24 06:46 BMI result Body Mass Index 43.6 Appearance: Alert.? Oriented X3. cvs: rrr, [id number] . res: air entry diminshed, has few exp wheezing abd: no rebound or guarding ,nt, bs present. ext pulses present , no cyanosis . neuro: axo3 , nonfocal. Objective Data Active Medications Acetaminophen (Acetaminophen 325 Mg Tablet) 650 mg PO Q6H PRN PRN Reason: Pain, Mild (Pain Scale 1-3), fever or headache Albuterol/Ipratropium (Albuterol/Iprat 2.5/0.5mg 3 Ml Ampul.Neb) 3 ml INHALE RQ4H WHILE AWAKE [facility] Last Admin: 06/05/24 11:15 Dose: 3 ml Documented By: MEG Albuterol/Ipratropium (Albuterol/Iprat 2.5/0.5mg 3 Ml Ampul.Neb) 3 ml INHALE RQ4H WHILE AWAKE PRN PRN Reason: Shortness of Breath/Wheezing Allopurinol (Allopurinol 300 Mg Tablet) 300 mg PO DAILY [facility] Last Admin: 06/05/24 08:00 Dose: 300 mg Documented By: SARA Benzocaine (Throat Lozenge, Medicated Lozenge) 1 lozenge MUCOUS MEM Q2H PRN PRN Reason: Sore Throat Bupropion HCl (Bupropion Hcl Xl 300 Mg Tab.Er.24h) 300 mg PO DAILY [facility] Last Admin: 06/05/24 08:00 Dose: 300 mg Documented By: SARA Calcium Carbonate (Calcium Carbonate 750 Mg Tab.Chew) 750 mg PO Q4H PRN PRN Reason: Heartburn Carvedilol (Carvedilol 25 Mg Tablet) 25 mg PO BID [facility]; Protocol Last Admin: 06/05/24 08:00 Dose: 25 mg Documented By: SARA Enoxaparin Sodium (Enoxaparin Sodium 40 Mg/0.4 Ml Syringe) 40 mg SUBCUT Q24H [facility] Last Admin: 06/04/24 16:06 Dose: 40 mg Documented By: MONICA Guaifenesin/Dextromethorphan (Guaifenesin Dm 600/30 1 Tab Tab.Er.12h) 2 tab PO BID PRN PRN Reason: Cough Last Admin: 06/05/24 12:12 Dose: 2 tab Documented By: SARA Piperacillin Sod/Tazobactam (Sod 4.5 gm/ Sodium Chloride) 100 mls @ 200 mls/hr IV Q6H [facility] Last Infusion: 06/05/24 12:38 Dose: Infused Documented By: SARA Vancomycin HCl 1,500 mg/ (Sodium Chloride) 500 mls @ 333.333 mls/hr IV Q24H [facility] Last Admin: 06/05/24 12:55 Dose: 333.33 mls/hr Documented By: SARA Levothyroxine Sodium (Levothyroxine Sodium 112 Mcg Tablet) 112 mcg PO DAILY@0600 [facility] Last Admin: 06/05/24 05:31 Dose: 112 mcg Documented By: CASTILRuddy Loratadine (Loratadine 10 Mg Tablet) 10 mg PO DAILY [facility] Last Admin: 06/05/24 08:00 Dose: 10 mg Documented By: SARA Magnesium Hydroxide (Milk Of Magnesia 30 Ml Oral.Susp) 30 ml PO DAILY PRN PRN Reason: Constipation Melatonin (Melatonin 3 Mg Tablet) 6 mg PO BEDTIME PRN PRN Reason: Insomnia Ondansetron HCl (Ondansetron Hcl 4 Mg/2 Ml Vial) 4 mg IVPUSH Q8H PRN PRN Reason: Nausea and Vomiting Pharmacy Consult (Consult Rx Vancomycin Dosing) 1 each MISCELLANE DAILY PRN PRN Reason: Consult order Prednisone (Prednisone 20 Mg Tablet) 40 mg PO DAILY [facility] Stop: 06/07/24 08:59 Last Admin: 06/05/24 08:00 Dose: 40 mg Documented By: SARA Sodium Chloride (0.9 % Sodium Chloride Flush 3 Ml Syringe) 3 ml IVFLUSH QSHIFT [facility] Last Admin: 06/05/24 08:00 Dose: 3 ml Documented By: SARA Vitamin D (Cholecalciferol (Vitamin D3) 25 Mcg Tablet) 25 mcg PO DAILY [facility] Last Admin: 06/05/24 08:00 Dose: 25 mcg Documented By: SARA Labs 06/04/24 05:00 06/05/24 05:35 Labs: Laboratory Results - last 24 hr 06/05/24 06/05/24 05:35 11:00 Estim Creat Clear Calc 63.2 Estimated GFR 48 Random Vancomycin 14.0 L Microbiology Microbiology Results: Microbiology 06/03/24 10:55 Blood Culture - Preliminary Blood - Venous No growth after 48 hours. 06/03/24 10:48 Blood Culture - Preliminary Blood - Venous No growth after 48 hours. Assessment and Plan (1) Multifocal pneumonia: Status: Acute Plan 69-year-old female with a PMH significant for moderate persistent asthma, HTN, ulcerative colitis, non-Hodgkin's lymphoma s/p radiation in 2016 currently in remission, hypothyroidism, PTSD, and anxiety who presents to the ED with?SOB, TAVAREZ, fatigue/weakness, and productive cough x5 days. Pt will be admitted to the hospital for treatment and further evaluation of acute hypoxic respiratory failure in the setting of multifocal pneumonia with sepsis. Acute hypoxic respiratory failure in the setting of multifocal pneumonia with sepsis has SOB, TAVAREZ, fatigue, and cough x5 days CTA concerning for multifocal pneumonia has leukocytosis and tachypnea resolved,lactic acid-normal. Plan:continue nebs,steriods ,vancomycin changed to doxy ( nasal mrsa negative) and Zosyn, started 06/03/2024 Titrate supplemental O2>92, wean as tolerated. Monitor respiratory status HTN:Continue carvedilol. Hypothyroidism:Continue levothyroxine. Ulcerative colitis:Not on home medications Denies recent acute flare Hx of non-Hodgkin's lymphoma S/P radiation in 2017 Currently in remission DNR/DNI. DVT Prophylaxis: Lovenox ongoing need for hospitalization for treatment of?acute hypoxic respiratory failure in the setting of multifocal pneumonia with sepsis requiring IV antibiotics, supplemental oxygen, breathing treatments, and close monitoring of respiratory status. Quality Stroke Does the patient have a stroke diagnosis?: No VTE Prior VTE?: No VTE Risk Level:: Medical - moderate - high VTE Device Contraindication: Treatment Not Indicated VTE Drug Contraindication: N/A - Med Ordered
[2024-06-05] MEDS: Enoxaparin Sodium 40 MG/0.4 ML SYRINGE SUBCUT (14:46)
[2024-06-05 14:55] LABS: Adenovirus PCR Not Detected (Not Detect.); Bordetella parapertussis PCR Not Detected (Not Detect.); Bordetella pertussis PCR Not Detected (Not Detect.); Chlamydia pneumoniae PCR Not Detected (Not Detect.); Coronavirus 229E PCR Not Detected (Not Detect.); Coronavirus HKU1 PCR Not Detected (Not Detect.); Coronavirus NL63 PCR Not Detected (Not Detect.); Coronavirus OC43 PCR Not Detected (Not Detect.); Human metapneumovirus PCR Not Detected (Not Detect.); Influenza A PCR Not Detected (Not Detect.); Influenza B PCR Not Detected (Not Detect.); Mycoplasma pneumoniae PCR Not Detected (Not Detect.); Parainfluenza 1 PCR Not Detected (Not Detect.); Parainfluenza 2 PCR Not Detected (Not Detect.); Parainfluenza 3 PCR Not Detected (Not Detect.); Parainfluenza 4 PCR Not Detected (Not Detect.); RSV PCR Not Detected (Not Detect.); Rhino/Enterovirus PCR Not Detected (Not Detect.)
[2024-06-05 15:02] LABS: MRSA Nasal PCR NEGATIVE (Negative); SA Nasal PCR NEGATIVE (Negative)
[2024-06-05 15:03] LABS: SARS-CoV-2 PCR Not Detected (Not Detect.)
[2024-06-05] MEDS: Doxycycline Hyclate 100 MG in 0.9 % Sodium Chloride 250 ML 166.67 MG IV (18:24)
[2024-06-05] MEDS: Throat Lozenge, Medicated LOZENGE 1 LOZENGE MUCOUS MEM (20:08)
[2024-06-06] MEDS: Piperacillin Sodium/Tazobactam 4.5 GM in 0.9 % Sodium Chloride 100 ML IV ×2 (00:04→06:26)
[2024-06-06] MEDS: 0.9 % Sodium Chloride Flush 3 ML SYRINGE IVFLUSH (00:05)
[2024-06-06 03:45] VITALS: BP 151/67; PULSE 72; RESP 18; TEMP 36.1; O2SAT 95
[2024-06-06] MEDS: Levothyroxine Sodium 112 MCG TABLET PO (06:26)
[2024-06-06 07:10] LABS: Creatinine Clr Calc Pharmacy 71.6; Estimated Glomerular Filt Rate 56
[2024-06-06] MEDS: Doxycycline Hyclate 100 MG in 0.9 % Sodium Chloride 250 ML 166.67 MG IV (07:25)
[2024-06-06 08:21] VITALS: PULSE 75; RESP 15; O2SAT 95
[2024-06-06] MEDS: Albuterol/Iprat 2.5/0.5MG 3 ML AMPUL.NEB INHALE (08:21)
[2024-06-06] MEDS: buPROPion HCl XL 300 MG TAB.ER.24H PO (09:02)
[2024-06-06] MEDS: predniSONE 20 MG TABLET 40 MG PO (09:02)
[2024-06-06] MEDS: allopurinoL 300 MG TABLET PO (09:03)
[2024-06-06] MEDS: Loratadine 10 MG TABLET PO (09:03)
[2024-06-06] MEDS: Amoxicillin/Potassium Clav 875 MG TABLET PO (09:03)
[2024-06-06] MEDS: carvediloL 25 MG TABLET PO (09:03)
[2024-06-06] MEDS: Cholecalciferol (Vitamin D3) 25 MCG TABLET PO (09:03)
[2024-06-06] MEDS: Throat Lozenge, Medicated LOZENGE 1 LOZENGE MUCOUS MEM (09:06)
--- NOTE | 2024-06-06 10:51 | P.DS_ITS ---
DS: Providers Provider Date of Service: 06/06/24 Date of admission: 06/03/24 14:35 Date of discharge: 06/06/24 Primary care physician: Catarina Khan MD Consults: 06/03/24 16:11 Consult to Infectious Diseases Routine Consulting Provider: [facility] Reason for consultation: AHRF sec multifocal pneumonia Has provider been notified: No Attending physician on discharge: Debi White Discharging clinician: Debi White DS: Diagnosis Discharge Diagnosis (1) Multifocal pneumonia: Status: Acute DS: Summary Hospital Course Hospital Course: HPI:69-year-old female with a PMH significant for moderate persistent asthma, HTN, ulcerative colitis, non-Hodgkin's lymphoma s/p radiation in 2017 currently in remission, hypothyroidism, PTSD, and anxiety who presents to the ED with?SOB, TAVAREZ, fatigue/weakness, and productive cough x5 days. Patient reports symptoms began last Friday with a sore throat. On Friday developed an initially productive cough and symptoms worsened over the next few days. The patient has been experiencing SOB and difficulty breathing both at rest and with exertion. Symptoms have not been alleviated by home inhalers. Patient is not on home O2. Denies fever, chills. No chest pain/pressure, palpitations. Denies nausea, vomiting, diarrhea, abdominal pain. Patient reports quitting smoking over 30 years ago. Denies alcohol or recreational substance use. In the ED pt was tachypneic as high as 30 and hypoxic as low as 79% on RA. Labs were significant for leukocytosis 13.4 with bandemia 9%, potassium 5.2, and AST 43. Renal function baseline. Lactic acid WNL at 0.8. Tested negative for flu, COVID, RSV. CXR showed concern for multifocal pneumonia. CTA of chest limited by patient's breathing motion artifact, though demonstrated no acute pulmonary artery emboli. Was concerning for multifocal pneumonia versus septic emboli, though malignancy can not be excluded. Pt was treated with IVF, DuoNebs, Solu- Medrol, Zosyn, and vancomycin. Pt will be admitted to the hospital for treatment and further evaluation of acute hypoxic respiratory failure in the setting of multifocal pneumonia with sepsis. hospital course: Patient came with shortness of breath, fatigue, productive cough for 5 days found to have pneumonia multifocal on the CT scan, also has leukocytosis, blood cultures sent, lactic acid was normal limits: Patient was admitted for acute hypoxemic respiratory failure secondary to pneumonia with sepsis- started on IV antibiotics and supportive care with nebs and steroids, id consulted. Nasal MRSA negative, RVP panel also negative. With above supportive care patient seems to be improved significantly, no shortness of breath. Blood culture-48 hours. Patient was switched to p.o. antibiotics seems to be improved significantly now- patient will be going home with p.o. doxycycline 100 mg b.i.d., Augmentin 875 mg p.o. b.i.d. for 7 more days. Patient was advised to consider outpatient repeat chest imaging in 3-4 weeks to see resolution of pneumonia. plan: complete p.o. doxycycline 100 mg b.i.d., Augmentin 875 mg p.o. b.i.d. for 7 more days. Patient was advised to consider outpatient repeat chest imaging in 3-4 weeks to see resolution of pneumonia. Above management discussed with the patient detail length she understand in agreement with the above plan, time spent 40 minute. Time Attestation Total time managing care of this patient today: 40 mintues. Discharge Coordination Time (in mins): 40 min Quality: Safe Use of Opioids Does Pt have an Active Cancer Diagnosis on the Problem List?: No Quality: Stroke Does the patient have a stroke diagnosis?: No Physical Exam Vital Signs: Vital Signs: Last Vital Signs Temp 96.9 F 06/06/24 03:45 Pulse 75 06/06/24 08:21 Resp 15 06/06/24 08:21 BP 151/67 H 06/06/24 03:45 Pulse Ox 95 06/06/24 03:45 O2 Del Method Room Air 06/06/24 03:45 O2 Flow Rate 2 06/04/24 06:46 BMI result Body Mass Index 43.6 Appearance: Alert.? Oriented X3. cvs: rrr, [id number] . res: air entry fair ,no rales or wheezing abd: no rebound or guarding ,nt, bs present. ext pulses present , no cyanosis . neuro: axo3 , nonfocal. DS: Data Data Completed and Pending Labs on day of discharge: Laboratory Results - last 24 hr 06/05/24 06/05/24 06/06/24 11:00 12:35 06:00 Hold Purple Top SEE NOTE Creatinine 0.99 Estim Creat Clear Calc 71.6 Estimated GFR 56 Nasal Screen MRSA (PCR) NEGATIVE Nasal S. aureus Screen NEGATIVE Nasal MRSA/S.aureus Interp SEE NOTE Random Vancomycin 14.0 L Respiratory Panel Dejesus See Note Adenovirus (Rapid PCR) Not Detected B.pert (TEM-PCR) Not Detected B.parapertussis DNA PCR Not Detected C. pneumoniae DNA (PCR) Not Detected Coronavirus OC43 (PCR) Not Detected Coronavirus HKU1 (PCR) Not Detected Coronavirus 229E (PCR) Not Detected Coronavirus NL63 (PCR) Not Detected Human Metapneumovir PCR Not Detected Influenza A (RT-PCR) Not Detected Influenza B (RT-PCR) Not Detected M. pneumoniae (PCR) Not Detected Parainfluenza 1 (PCR) Not Detected Parainfluenza 2 (PCR) Not Detected Parainfluenza 3 (PCR) Not Detected Parainfluenza 4 (PCR) Not Detected RSV (PCR) Not Detected Entero/Rhino (PCR) Not Detected SARS-CoV-2 RNA (RT-PCR) Not Detected Preliminary micro results at discharge 06/03/24 10:55 Blood Culture - Preliminary Blood - Venous No growth after 48 hours. 06/03/24 10:48 Blood Culture - Preliminary Blood - Venous No growth after 48 hours. Imaging Chest x-ray: Radiologist's impression: ITS Impressions Chest X-Ray 06/03/24 10:04 IMPRESSION: Concerning multifocal pneumonia Electronically signed by: Bert Marin MD 06/03/2024 11:55 AM EST RP Chest CTA 06/03/24 11:20 IMPRESSION: Limited examination demonstrated no acute pulmonary artery emboli. No dissection, aorta. Concerning multifocal pneumonia versus septic emboli. Malignancy cannot be excluded. Recommend follow-up. Fleischner guidelines were followed. Electronically signed by: Bert Marin MD 06/03/2024 11:51 AM EST RP Discharge Plan Discharge Anticipated Discharge Date/Time: 06/06/24 10:46 Patient Disposition: Home, Self-Care Discharge Diagnosis: Pneumonia Referrals: Catarina Khan MD [Primary Care Provider] - 1 Week Discharge Medications: New doxycycline monohydrate 100 mg Capsule 100 mg PO Q12H Qty: 14 0RF loratadine 10 mg Tablet 10 mg PO DAILY Qty: 10 0RF amoxicillin-pot clavulanate 875-125 mg Tablet 1 tab PO Q12H Qty: 14 0RF Continued allopurinol 300 mg tablet 300 mg PO DAILY albuterol sulfate 90 mcg/actuation HFA aerosol inhaler 2 puff inhalation Q4-6H PRN (Reason: wheezing) budesonide-formoterol [Symbicort] 80-4.5 mcg/actuation HFA aerosol inhaler 2 puff inhalation BID albuterol sulfate 2.5 mg /3 mL (0.083 %) Solution For Nebulization 2.5 mg INHALATION Q4-6H PRN (Reason: Shortness Of Breath Or Wheezing) cholecalciferol (vitamin D3) [Vitamin D3] 25 mcg (1,000 unit) Tablet 25 mcg PO DAILY bupropion HCl 300 mg tablet extended release 24 hr 300 mg PO DAILY carvedilol 25 mg tablet 25 mg PO BID Rx Instructions: must administer with a meal/food levothyroxine 112 mcg capsule 112 mcg PO DAILY@0600 (DME) blood pressure kit-extra large Kit See Rx Instructions .Route Qty: 1 0RF Rx Instructions: As directed Discharge Orders: Discharge Order (Routine); Ordered 06/06/24 Ordered By: Debi White Diet: Advance to usual diet Activity on Discharge: As tolerated Stand Alone Forms: Patient Portal Discharge page Print Language: Gabonese Care Plan Goals: Patient came with shortness of breath, fatigue, productive cough for 5 days found to have pneumonia multifocal on the CT scan, also has leukocytosis, blood cultures sent, lactic acid was normal limits: Patient was admitted for acute hypoxemic respiratory failure secondary to pneumonia with sepsis- started on IV antibiotics and supportive care with nebs and steroids, id consulted. Nasal MRSA negative, RVP panel also negative. With above supportive care patient seems to be improved significantly, no shortness of breath. Blood culture-48 hours. Patient was switched to p.o. antibiotics seems to be improved significantly now- patient will be going home with p.o. doxycycline 100 mg b.i.d., Augmentin 875 mg p.o. b.i.d. for 7 more days. Patient was advised to consider outpatient repeat chest imaging in 3-4 weeks to see resolution of pneumonia. Health Concerns: As above. Plan of Treatment: As above. Assessment: As above.
[2024-06-06 11:52] LABS: Vancomycin Random 13.1 mcg/mL (15-20)
--- NOTE | 2024-06-06 11:58 | MHC.CM.PN ---
PT WILL DC HOME TODAY WITH NO SERVICES VIA PRIVATE TRANSPORT
[2024-06-06 12:11] VITALS: BP 146/72; PULSE 58; RESP 18; TEMP 36.2; O2SAT 93
== END 2024-06-06 12:33 | disposition home or self-care (01) | DRG 871 ==
LOC: HO.ED 12:31 → HO.EDOVER 14:35 → HO.S3 06-04 09:51
PROVIDERS: Physician Assistant Medical; Admitting Provider Student in an Organized Health Care Education/Training Program; Emergency Provider Student in an Organized Health Care Education/Training Program; PCP Internal Medicine; Visit Provider Internal Medicine
DX: A41.9 Sepsis, unspecified organism (principal); J18.9 Pneumonia, unspecified organism; J96.01 Acute respiratory failure with hypoxia; C85.9A Non-Hodgkin lymphoma, unspecified, in remission; Z68.41 Body mass index [BMI] 40.0-44.9, adult; E66.01 Morbid (severe) obesity due to excess calories; J45.40 Moderate persistent asthma, uncomplicated; Z71.3 Dietary counseling and surveillance; I10 Essential (primary) hypertension; Z66 Do not resuscitate; E03.9 Hypothyroidism, unspecified; Z20.822 Contact with and (suspected) exposure to COVID-19; Z87.891 Personal history of nicotine dependence; Z79.890 Hormone replacement therapy; Z79.899 Other long term (current) drug therapy
CPT/HCPCS: 0241U; 36415; 71045; 71275; 80048; 80053; 80202; 82565; 83605; 83735; 85007; 85027; 87040; 87633; 87640; 87641; 94640; 99285; J1650; J2543; J2919; J3370; J3371; Q9967

== ENCOUNTER → 2024-06-03 10:04 | Outpatient (BNV) | payer OTHER, SELFPAY | PROVIDERS: Emergency Provider Student in an Organized Health Care Education/Training Program; PCP Internal Medicine; Visit Provider Radiology Diagnostic Radiology | DX: J18.9 Pneumonia, unspecified organism (principal); R91.8 Other nonspecific abnormal finding of lung field | CPT/HCPCS: 71045; 71275 ==

== ENCOUNTER → 2024-06-03 14:35 | Outpatient (BNV) | payer OTHER, SELFPAY | PROVIDERS: Admitting Provider Student in an Organized Health Care Education/Training Program; Emergency Provider Student in an Organized Health Care Education/Training Program; PCP Internal Medicine; Visit Provider Student in an Organized Health Care Education/Training Program | DX: J18.9 Pneumonia, unspecified organism (principal) | CPT/HCPCS: 99223; 99232; 99239 ==

== ENCOUNTER → 2024-06-03 14:35 | Outpatient (BNV) | payer MEDICARE, SELFPAY | PROVIDERS: Admitting Provider Student in an Organized Health Care Education/Training Program; Emergency Provider Student in an Organized Health Care Education/Training Program; PCP Internal Medicine; Visit Provider Internal Medicine | DX: J18.9 Pneumonia, unspecified organism (principal); R09.02 Hypoxemia | CPT/HCPCS: 99222 ==

== ENCOUNTER 2024-07-21 06:48 | Outpatient (REF) | payer MEDICARE, SELFPAY ==
--- NOTE | ~2024-07-21 | XR_ITS ---
CLINICAL HISTORY: PNEUMONIA 2 view chest x-ray Comparison: CT/AK/SR - CT ANGIO CHEST PE PROTOCOL - 06/03/24 11:09 EST Findings: The lungs are clear. Normal size heart. No acute fracture. IMPRESSION: 1. No acute findings. This document has been electronically signed by: Debra Petersen MD on 07/21/2024 07:16:31
--- OUTSIDE RECORDS SUMMARY | 2024-07-21 06:52 | XMS_ITS | Referral Summary ---
Author Organization [facility] Address [address] [place] [address] Care Team Providers Care Numerical Control Programmer Name Role Phone Catarina Khan Primary Care Provider [phone] Allergies Active Allergy Reactions Criticality Noted Date Comments Latex Rash 09/06/2022 By experience - not tested Medications albuterol (PROAIR HFA,VENTOLIN HFA) 90 mcg inhaler 2 puffs every 4 hours as needed. 08/22/2022 Active buPROPion XL (WELLBUTRIN XL) 300 mg tablet TAKE 1 TABLET EVERY DAY 08/14/2022 Active carvediloL (COREG) 12.5 mg tablet Take 12.5 mg by mouth 2 times a day. 08/20/2022 Active levothyroxine (SYNTHROID, LEVOTHROID) 112 mcg tablet Take 112 mcg by mouth once a day. 08/14/2022 Active mesalamine (APRISO) 0.375 gram 24 hr capsule 06/04/2022 Active vitamin D3 25 mcg (1,000 unit) capsule Take 1 capsule by mouth once a day. Active Social History Tobacco Use Types Packs/Day Years Used Date Smoking Tobacco: Former Cigarettes 1.5 10 1 985 - 1994 Smokeless Tobacco: Never Tobacco Cessation:Counseling Given: Not Answered Comments:Quit 30 years ago Alcohol Use Standard Drinks/Week Comments Yes 0 (1 standard drink = 0.6 oz pur e alcohol) 1-2 times / month Comments No Sex and Gender Information Value Date Recorded Sex Assigned at Not on file Legal Sex Female 5:09 AM EDT Gender Identity Not on file Sexual Orientation Not on file Last Filed Vital Signs Vital Sign Reading Time Taken Comments Blood Pressure 121/63 09/13/2022 10:46 AM EDT Pulse 65 09/13/2022 10:46 AM EDT Temperature 36.7 ??C (98 ??F) 09/13/2022 10: 46 AM EDT Respiratory Rate 20 09/13/2022 10:4 6 AM EDT Oxygen Saturation 95% 09/13/2022 10: 46 AM EDT Inhaled Oxygen Concentration - - Weight 140.1 kg (308 lb 12.8 oz) 09/13/2022 6:43 AM EDT Height 170.2 cm (5' 7 ) 09/06/2022 9:31 AM EDT Body Mass Index 48.36 09/06/2022 9:31 AM EDT Plan of Treatment Not on file Insurance [facility] Care Teams Numerical Control Programmer Relationship Specialty Start Date End Date Catarina Khan [address] [place] [address] PCP - General 09/13/22
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
--- OUTSIDE RECORDS SUMMARY | 2024-07-21 06:52 | XMS_ITS | Clinical Summary ---
Author Organization [facility] Address [address] [place] [address] Care Team Providers Care Sales Lead Name Role Phone Catarina Khan Primary Care Provider Allergies Active Allergy Reactions Criticality Noted Date [...] 09/06/2022 9:31 AM EDT Plan of Treatment Health Maintenance Due Date Last Done Comments Cologuard 1955 Colon Cancer Screening 1955 Colonoscopy 1955 FOBT / Fit Test 1955 Sigmoidoscopy 1955 DTaP,Tdap,and Td Vaccines (1 - Tdap) 1977 Mammogram 1995 Osteoporosis Screening 2005 Zoster Vaccines (1 of 2) 2005 RSV Vaccine (60+ years old a nd patients) (1 - Risk 60-74 years 1-dose series) 2015 Pneumococcal Vaccine: 65+ Ye ars (1 of 1 - PCV) 2020 COVID-19 Vaccine (1 - 2023-2 5 season) 2024 Influenza Vaccine (#1) 2024 Alcohol/Substance Use Screening 06/23/2024 Health Care Proxy Review 06/23/2024 Hepatitis B Vaccines Aged Out No long er eligible based on patient's age to complete this topic Insurance [facility] Care Teams Sales Lead Relationship Specialty Start Date End Date Catarina Khan [address] [place] [address] PCP - General 09/13/22
== END 2024-07-21 06:49 | disposition home or self-care (01) ==
LOC: HO.XRAY 06:48
PROVIDERS: PCP Internal Medicine; Visit Provider Internal Medicine
DX: J18.9 Pneumonia, unspecified organism (principal)
CPT/HCPCS: 71046

== ENCOUNTER → 2024-07-21 06:56 | Outpatient (BNV) | payer MEDICARE, SELFPAY | PROVIDERS: PCP Internal Medicine; Visit Provider Radiology Diagnostic Radiology | DX: J18.9 Pneumonia, unspecified organism (principal) | CPT/HCPCS: 71046 ==